=== PATIENT | male | born 1985 | race Two or more races ===

== ENCOUNTER 2025-04-15 17:55 | Emergency (ER) | payer SELFPAY ==
--- NOTE | 2025-04-15 18:00 | EKG_ITS ---
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
[2025-04-15 18:09] VITALS: BP 158/109; PULSE 103; RESP 18; TEMP 36.8; O2SAT 90; BMI 21.3
[2025-04-15 18:35] VITALS: PULSE 90; O2SAT 98
--- NOTE | 2025-04-15 18:56 | EDRME_ITS ---
Rapid Medical Screening Exam [facility] Arrival date/time: 04/15/25 17:55 40M with history of bariatric surgery, HTN (no meds), anxiety, and alcohol use presents to ED with several days of SOB and heart palps. Patient denies URI symptoms. Patient does not feel like this is withdrawal. Patient took 1 mg Ativan about 3 hours ago and doesn't feel better. Chief Complaint: Arrhythmia/Palpitations Vital signs: Vital Signs Temperature 98.2 F 04/15/25 18:09 Pulse Rate 103 H 04/15/25 18:09 Respiratory Rate 18 04/15/25 18:09 Blood Pressure 158/109 H 04/15/25 18:09 Pulse Oximetry (%) 90 L 04/15/25 18:09 Oxygen Delivery Method Room Air 04/15/25 18:09
--- NOTE | 2025-04-15 18:56 | XR_ITS ---
Examination: PA chest single view TECHNIQUE: Upright PA chest single view Date and time: April 15, 2025, 1904 hours Comparison November 28, 2016 INDICATIONS: Shortness of breath cardiac palpitations beginning 3 days ago FINDINGS: Normal heart size. The lungs are clear. The osseous structures are intact. IMPRESSION: No active disease
[2025-04-15 19:24] LABS: Basophils % (Auto) 0 % (0-2.5); Eosinophils % (Auto) 0 % (0-10); Hematocrit 43.8 % (41.0-53.0); Hemoglobin 15.7 g/dL (13.5-16.0); Immature Granulocytes % (Auto) 0 % (0-0); Immature Granulocytes Auto 0.01 Thou/mm3 (0.00-0.00); Lymphocytes # (Auto) 2.9 Thou/mm3 (1.0-4.8); Lymphocytes % (Auto) 43 % (10-50); Mean Corpuscular HGB Conc 35.8 g/dl (31.0-37.0); Mean Corpuscular Hemoglobin 35.4 pg (25.0-35.0); Mean Corpuscular Volume 99 fL (80-100); Monocytes # (Auto) 0.5 Thou/mm3 (0.0-0.8); Monocytes % (Auto) 7 % (0-12); Neutrophils # (Auto) 3.4 Thou/mm3 (1.8-7.7); Neutrophils % (Auto) 50 % (37-80); Nucleated Red Blood Cell % 0 /100 WBC (0); Platelet Count 172 Thou/mm3 (140-440); RDW Standard Deviation 47.4 fL (35.1-43.9); Red Blood Count 4.44 Miln/mm3 (4.50-5.90); White Blood Count 6.8 Thou/mm3 (3.8-10.6)
[2025-04-15 20:11] LABS: B-Type Natriuretic Peptide < 20 pg/mL (0-100)
[2025-04-15 20:13] LABS: Amphetamine/Methamp Scrn,U Negative (Negative); Barbiturate Screen,Urine Negative (Negative); Benzodiazepines Screen,Urine Negative (Negative); Benzoylecgonine Screen, Ur Negative (Negative); Fentanyl Screen,Urine Negative (Negative); Opiate Screen,Urine Negative (Negative); THC Screen,Urine Positive (Negative)
[2025-04-15 20:24] LABS: Alanine Aminotransferase 133 U/L (10-49); Albumin, Serum 4.7 gm/dL (3.5-5.0); Albumin/Globulin Ratio 1.4 (1.2-2.2); Alcohol, Blood Medical 395.5 mg/dL (0-10.0); Alkaline Phosphatase 88 U/L (46-116); Anion Gap 14 (7-16); Aspartate Amino Transferase 208 U/L (0-34); BUN/Creatinine Ratio 10 Ratio (12-20); Bilirubin,Total 0.5 mg/dL (0.3-1.2); Blood Urea Nitrogen 7 mg/dL (9-23); Calcium 9.1 mg/dL (8.3-10.6); Calcium (Corrected) 9.1 mg/dL (8.5-10.1); Carbon Dioxide 25.6 mMol/L (20.0-31.0); Chloride 104 mMol/L (98-107); Creatinine (Component) 0.7 mg/dL (0.6-1.3); Estimated Creatinine Clearance 113.2 mL/min (>60); Globulin 3.4 gm/dL (2.3-3.5); Glucose 88 mg/dL (74-106); Magnesium 1.8 mg/dL (1.6-2.6); Osmolality,Calculated 283 (275-295); Potassium 3.4 mMol/L (3.4-5.1); Sodium 144 mMol/L (136-145); Total Protein 8.1 gm/dL (5.7-8.2); Troponin I < 0.020 ng/mL (0.0-0.045); eGFR > 60 See Note
[2025-04-15 21:22] VITALS: BP 149/107; PULSE 107; RESP 18; TEMP 37; O2SAT 95
--- NOTE | 2025-04-15 21:35 | PD.EDARRY ---
ED Arrhythmia Palp. RME/HPI General Chief Complaint: Arrhythmia/Palpitations Stated Complaint: Palpitations X 3 days, SOB x 3 days Arrival date/time: 04/15/25 17:55 RME / HPI RME / HPI narrative: 04/15/25 17:55 40M with history of bariatric surgery, HTN (no meds), anxiety, and alcohol use presents to ED with several days of SOB and heart palps. Patient denies URI symptoms. Patient does not feel like this is withdrawal. Patient took 1 mg Ativan about 3 hours ago and doesn't feel better. -------- Dr. Michelle?s Main ED Evaluation: 40yo male with a history of HTN presents to the ED for a chief complaint of palpitations x 2 days. Patient states he feels like his heart has been racing for the last 2 days. Patient states he drinks daily. Endorses associated generalized weakness. Patient denies any chest pain, shortness of breath, cough, fever, chills or any other associated symptoms. NKA. Related Data Home Medications ?Medication ?Instructions ?Recorded ?Confirmed alprazolam 0.5 mg tablet (Xanax) 0.5 mg PO PRN PRN ANXIETY #0 tabs 11/28/16 12/17/19 Lisinopril/Hydrochlorothiazide 1 tab PO BID ##60 09/04/17 12/17/19 (Lisinopril-Hctz 20-12.5 Tab) nebivolol 5 mg tablet (Bystolic) 5 mg PO QDAY 12/17/19 12/17/19 Previous Rx's ?Medication ?Instructions ?Recorded diphenhydramine HCl 25 mg capsule 25 mg PO Q8H PRN allergic symptoms 12/17/19 (Benadryl) #30 caps hydrocodone 5 mg-acetaminophen 325 1 tab PO Q8H PRN pain #10 tabs 05/20/24 mg tablet sulfamethoxazole 800 1 tab PO BID #20 tabs 05/20/24 mg-trimethoprim 160 mg tablet (Bactrim DS) Allergies Allergy/AdvReac Type Severity Reaction Status Date / Time NKA* Allergy Uncoded 04/15/25 17:59 Review of Systems Review of Systems Systems Reviewed: All systems reviewed, normal except as documented Past Medical History Past Medical History NEUROLOGIC: Negative Seizures CARDIAC: Positive Hypercholesterolemia and Hypertension; Negative Congestive Heart Failure RESPIRATORY: Negative Chronic Obstructive Pulmonary Disease (COPD) GASTROINTESTINAL: Positive Obesity (gastric sleeve 2019) GENITOURINARY: Negative Renal Disease ENDOCRINE: Negative Diabetes Mellitus Type 1 or Diabetes Mellitus Type 2 PSYCHO/SOCIAL: Positive Anxiety OTHER HISTORY: Positive Falls; Negative Cancer Social History SMOKING STATUS: Current every day smoker ED Exam Narrative Physical exam: GENERAL APPEARANCE: alert and oriented x 4, well-developed, well-nourished, no acute distress VITALS: All vitals were reviewed and the pulse ox is 95% on room air, which is normal according to my interpretation. HEENT: Normocephalic, atraumatic; pupils equal, round, reactive to light; EOMI; mucous membranes pink, moist; oropharynx clear NECK: Supple LUNGS: CTABL; no wheezes, no rales, no rhonchi HEART: Regular rate, regular rhythm; normal S1, S2; no murmurs ABDOMEN: non distended; normal BS; soft, no tenderness, no guarding, no rebound; no masses, no organomegaly, no hernia BACK: no CVA tenderness EXTREMITIES: atraumatic; no edema NEUROLOGIC: awake; alert and oriented x4; cranial nerves II-XII grossly intact; no focal sensory or motor deficits PSYCHIATRIC: appropriate mood and affect SKIN: warm, dry, normal color; no rashes Course Quality Measures none Orders Category Date Time Status EKG (ED ONLY) *Do not use* NOW Care 04/15/25 18:00 Completed EKG (ED Only) Stat Exams 04/15/25 18:00 Draft XR chest 1V portable Stat Exams 04/15/25 18:56 Completed Alcohol, Blood Medical Stat Lab 04/15/25 19:16 Completed B-Type Natriuretic Peptide Stat Lab 04/15/25 19:16 Completed CBC Stat Lab 04/15/25 19:16 Completed Comprehensive Metabolic Panel Stat Lab 04/15/25 19:16 Completed Drug Screen,Urine Stat Lab 04/15/25 19:02 Completed Mag [Magnesium] Stat Lab 04/15/25 19:16 Completed Troponin I Stat Lab 04/15/25 19:16 Completed Vital Signs Vital signs: Vital Signs Temperature 98.2 F 04/15/25 18:09 Pulse Rate 103 H 04/15/25 18:09 Respiratory Rate 18 04/15/25 18:09 Blood Pressure 158/109 H 04/15/25 18:09 Pulse Oximetry (%) 90 L 04/15/25 18:09 Oxygen Delivery Method Room Air 04/15/25 18:09 Arrhythmia/Palpitations MDM Narrative MDM Narrative:: Scribe Attestation: 04/15/25 Lisa Burrell am scribing for and in the presence of Dr. Michelle. Patient data External records reviewed:: [facility] previous records (Per chart review, patient was seen here on 10/21/23 for alcohol intoxication.) Clinical information provided by:: patient Social determinants that could affect healthcare access:: alcohol use Patient has the following chronic illnesses:: HTN, HLD How is presenting disease/condition affected by chronic disease/condition?: uneffected by Evaluation data The following diagnostics were reviewed and interpreted by me:: lab results and EKG tracing(s) Lab and/or radiology exams considered but not ordered:: none Interpretation Summary: CBC normal, AST and ALT elevated, UDS positive for marijuana, Blood Alcohol 395.5. EKG done at 1813, NSR, rate of 95, normal intervals, normal axis, no acute ST-T changes, according to my interpretation. Medications / Prescriptions Medications or Prescriptions considered but not ordered:: none Medication administrations:: none Consultations Consultation(s) initiated? (list below): No Diagnosis Differential diagnosis arrhythmia/palpitations: palpitations, anxiety and other (alcohol intoxication) Most likely diagnosis given after review of the tests above:: see clinical impression below Admission Indicated Admission indicated?: not indicated Admission Request Was there a request for admission?: No Disposition Plan Disposition Plan: Discharge Discharge Attestation Discharge Attestation: The patient and all family members were given an opportunity to ask questions and understood the discharge instructions. Discharge instructions specifically effects, indications for sooner follow up or return to the emergency department, and the expected course of current diagnosis. Patient condition: Stable Discharge Plan Plan Patient Disposition: HOME (Self Care) Prescriptions/Referrals Prescriptions/Med Rec: No Action alprazolam [Xanax] 0.5 MG tablet 0.5 mg PO PRN PRN (Reason: ANXIETY) Qty: 0 Lisinopril/Hydrochlorothiazide (Lisinopril-Hctz 20-12.5 Tab) 1 TAB tablet 1 tab PO BID Qty: 60 Bystolic 5 mg Tablet 5 mg PO QDAY diphenhydramine HCl [Benadryl] 25 mg capsule 25 mg PO Q8H PRN (Reason: allergic symptoms) Qty: 30 0RF sulfamethoxazole-trimethoprim [Bactrim DS] 800-160 mg tablet 1 tab PO BID Qty: 20 0RF hydrocodone-acetaminophen 5-325 mg tablet 1 tab PO Q8H MDD 10 PRN (Reason: pain) Qty: 10 0RF Referrals: No Primary/Family,Physician [Primary Care Provider] - In 1 week Problem List Clinical Impression: Alcohol intoxication, Palpitations Patient/Caregiver Discharge Instructions Education Materials: ED Alcohol Intoxication, ED Palpitations Print Language: Wallisian Stand Alone Forms: [facility] Award Info., Patient Portal Info Letter
[2025-04-15 21:38] VITALS: RESP 18
== END 2025-04-15 21:39 | disposition home or self-care (01) ==
PROVIDERS: Physician Assistant; Emergency Provider Emergency Medicine
DX: F10.129 Alcohol abuse with intoxication, unspecified (principal); Y90.8 Blood alcohol level of 240 mg/100 ml or more; R00.2 Palpitations; R94.31 Abnormal electrocardiogram [ECG] [EKG]; I10 Essential (primary) hypertension; Z98.84 Bariatric surgery status
CPT/HCPCS: 36415; 71045; 80053; 80307; 80320; 83735; 83880; 84484; 85025; 93005; 99283; G0480

== ENCOUNTER 2025-05-14 21:44 | Emergency (ER) | payer SELFPAY ==
[2025-05-14 21:47] VITALS: BMI 20.7
[2025-05-14 22:05] VITALS: BP 141/97; PULSE 84; RESP 17; TEMP 37.2; O2SAT 98
--- NOTE | 2025-05-14 22:19 | XR_ITS ---
Examination: Duplex scan of the lower extremity, unilateral left Date and time of exam: May 14, 2025 10:42 PM INDICATIONS: Left leg swelling and pain today Technique: Duplex scan of the extremity veins using B-mode/grayscale imaging and Doppler spectral analysis and color flow Attention is directed to internal echogenicity, compression and augmentation involving these veins, color flow assessment, spectral analysis Findings: Major deep venous structures in the extremity demonstrate normal course and caliber. There is no evidence of deep vein thrombosis. Normal color flow and spectral analysis Impression: Negative for DVT..
--- NOTE | 2025-05-14 22:33 | PD.EDEXREM ---
ED Extremity Problem RME/HPI General Chief complaint: Extremity Problem,Nontraumatic Stated complaint: LEFT KNEE AREA BRUISING AND PAIN Time Seen by Provider: 05/14/25 22:18 Arrival date/time: 05/14/25 21:44 40M with history of alcohol use and anxiety presents to ED with worsening L knee bruising, swelling, and tenderness for several weeks. Patient states it started as a varicose vein, but now there is pain radiating upward to groin area. Limitations: no limitations Related Data Home Medications ?Medication ?Instructions ?Recorded ?Confirmed alprazolam 0.5 mg tablet (Xanax) 0.5 mg PO PRN PRN ANXIETY #0 tabs 11/28/16 12/17/19 Lisinopril/Hydrochlorothiazide 1 tab PO BID ##60 09/04/17 12/17/19 (Lisinopril-Hctz 20-12.5 Tab) nebivolol 5 mg tablet (Bystolic) 5 mg PO QDAY 12/17/19 12/17/19 Previous Rx's ?Medication ?Instructions ?Recorded diphenhydramine HCl 25 mg capsule 25 mg PO Q8H PRN allergic symptoms 12/17/19 (Benadryl) #30 caps hydrocodone 5 mg-acetaminophen 325 1 tab PO Q8H PRN pain #10 tabs 05/20/24 mg tablet sulfamethoxazole 800 1 tab PO BID #20 tabs 05/20/24 mg-trimethoprim 160 mg tablet (Bactrim DS) Allergies Allergy/AdvReac Type Severity Reaction Status Date / Time No Known Allergies Allergy Verified 05/14/25 21:45 Review of Systems Review of Systems Systems Reviewed: All systems reviewed, normal except as documented Constitutional Constitutional: Reports system reviewed and no additional complaints, except as documented, Denies fever(s) and Denies headache(s) ENT Ears, Nose, Mouth, and Throat: Denies disequilibrium and Denies headache(s) Cardiovascular Cardiovascular: Reports system reviewed and no additional complaints, except as documented, Denies chest pain and Denies dyspnea Respiratory Respiratory: Reports system reviewed and no additional complaints, except as documented, Denies cough and Denies dyspnea Gastrointestinal Gastrointestinal: Reports system reviewed and no additional complaints, except as documented, Denies abdominal pain, Denies nausea and Denies vomiting Musculoskeletal Musculoskeletal: Reports as per HPI and Reports arthralgias Neurologic Neurologic: Reports system reviewed and no additional complaints, except as documented, Denies confusion, Denies disequilibrium and Denies headache(s) Psychiatric Psychiatric: Denies confusion Past Medical History Past Medical History NEUROLOGIC: Negative Seizures CARDIAC: Positive Hypercholesterolemia and Hypertension; Negative Congestive Heart Failure RESPIRATORY: Negative Chronic Obstructive Pulmonary Disease (COPD) GASTROINTESTINAL: Positive Obesity (gastric sleeve 2019) GENITOURINARY: Negative Renal Disease ENDOCRINE: Negative Diabetes Mellitus Type 1 or Diabetes Mellitus Type 2 PSYCHO/SOCIAL: Positive Anxiety OTHER HISTORY: Positive Falls; Negative Cancer Social History SMOKING STATUS: Current every day smoker ED Exam General Limitations: Present no limitations General appearance: Present alert and in no apparent distress Head Head exam: Present atraumatic Eye Eye exam: Present normal appearance, PERRL and EOMI ENT ENT exam: Present normal exam, normal oropharynx and mucous membranes moist Neck Neck exam: Present normal inspection, full ROM and trachea midline Chest Chest inspection: Present normal inspection and symmetric chest wall rise Respiratory Respiratory exam: Present normal lung sounds bilaterally Cardiovascular Cardiovascular exam: Present regular rate, normal rhythm and normal heart sounds Abdominal Exam Abdominal exam: Present soft and normal bowel sounds Extremities Exam Extremities exam: Present full ROM Expanded Lower Extremity Exam Knee exam: Present full ROM, swelling and ecchymosis Back Exam Back exam: Present normal inspection and full ROM Neurological Exam Neurological exam: Present alert, oriented X3 and CN II-XII intact Psychiatric Psychiatric exam: Present normal affect and normal mood Skin Skin exam: Present warm, dry, intact and normal color Course Quality Measures none Orders Category Date Time Status US venous doppler LE LT Stat Exams 05/14/25 22:19 Completed Vital Signs Vital signs: Vital Signs Temperature 98.9 F 05/14/25 22:05 Pulse Rate 84 05/14/25 22:05 Respiratory Rate 17 05/14/25 22:05 Blood Pressure 141/97 H 05/14/25 22:05 Pulse Oximetry (%) 98 05/14/25 22:05 Oxygen Delivery Method Room Air 05/14/25 22:05 O2 at 98% on RA and WNLs Extremity Problem MDM Narrative MDM Narrative:: 40M with history of alcohol use and anxiety presents to ED with worsening L knee bruising, swelling, and tenderness for several weeks. Patient states it started as a varicose vein, but now there is pain radiating upward to groin area. Physical exam reveals area of bruising and swelling around L medial knee area. ROM and gait normal. Patient is afebrile, alert, but anxious. US no DVT. Patient data External records reviewed:: [facility] previous records Clinical information provided by:: patient Social determinants that could affect healthcare access:: alcohol use Patient has the following chronic illnesses:: alcohol/anxiety How is presenting disease/condition affected by chronic disease/condition?: exacerbated by Evaluation data The following diagnostics were reviewed and interpreted by me:: radiology exam(s) Lab and/or radiology exams considered but not ordered:: ordered Interpretation Summary: above Medications / Prescriptions Medications or Prescriptions considered but not ordered:: not ordered Medication administrations:: n/a Consultations Consultation(s) initiated? (list below): No Diagnosis Extremity Problem Differential Diagnosis: herpes zoster, gout, cellulitis, superficial thrombophlebitis, deep venous thrombosis of upper extremity, lower extremity edema and deep vein thrombosis of lower extremity Most likely diagnosis given after review of the tests above:: superficial thrombophlebitis Admission Indicated Admission indicated?: not indicated Admission Request Was there a request for admission?: No Disposition Plan Disposition Plan: Discharge Discharge Attestation Discharge Attestation: The patient and all family members were given an opportunity to ask questions and understood the discharge instructions. Discharge instructions specifically effects, indications for sooner follow up or return to the emergency department, and the expected course of current diagnosis. Patient condition: Stable Discharge Plan Plan Patient Disposition: HOME (Self Care) Discharge Disposition comment: Stable Prescriptions/Referrals Prescriptions/Med Rec: No Action alprazolam [Xanax] 0.5 MG tablet 0.5 mg PO PRN PRN (Reason: ANXIETY) Qty: 0 Lisinopril/Hydrochlorothiazide (Lisinopril-Hctz 20-12.5 Tab) 1 TAB tablet 1 tab PO BID Qty: 60 Bystolic 5 mg Tablet 5 mg PO QDAY diphenhydramine HCl [Benadryl] 25 mg capsule 25 mg PO Q8H PRN (Reason: allergic symptoms) Qty: 30 0RF sulfamethoxazole-trimethoprim [Bactrim DS] 800-160 mg tablet 1 tab PO BID Qty: 20 0RF hydrocodone-acetaminophen 5-325 mg tablet 1 tab PO Q8H MDD 10 PRN (Reason: pain) Qty: 10 0RF Referrals: Deepika Plunkett SERVICE OR WORK DISPATCHER [Primary Care Provider] - In 1 week Problem List Clinical Impression: Superficial thrombophlebitis Patient/Caregiver Discharge Instructions Education Materials: ED Thrombophlebitis, Superficial Additional Instructions: Please follow-up with PCP within 24-48 hours and return immediately if symptoms worsen. Print Language: Azeri Stand Alone Forms: Patient Portal Info Letter PA/DIELECTRIC MACHINE OPERATOR Supervising Physician PA/DIELECTRIC MACHINE OPERATOR Supervising Physician: Dr. Sargent
== END 2025-05-14 23:27 | disposition home or self-care (01) ==
PROVIDERS: Emergency Provider Emergency Medicine; PCP Nurse Practitioner Family
DX: I80.02 Phlebitis and thrombophlebitis of superficial vessels of left lower extremity (principal)
CPT/HCPCS: 93971; 99283